=== PATIENT | male | born 2005 | race Two or more races ===

== ENCOUNTER 2023-05-26 17:52 | Emergency (ER) | payer MEDICAID ==
[~2023-05-26] VITALS: Ht 165.1 cm; Wt 68.0 kg
[2023-05-26 18:04] VITALS: BP 137/88; TEMP 98.9; O2SAT 99
[2023-05-26] MEDS ORDERED: GENT5DRO4 RIGHTEYE (18:19)
== END 2023-05-26 18:36 | disposition home or self-care (01) ==
LOC: ER 17:56
DX: H10.9 Unspecified conjunctivitis (principal)